=== PATIENT | female | born 1990 ===

== ENCOUNTER 2022-03-22 07:19 | Day surgery (SDC) | payer OTHER ==
[~2022-03-22] VITALS: Ht 162.6 cm; Wt 65.8 kg
== END 2022-03-22 20:25 | disposition home or self-care (01) ==
LOC: CIR.AMB 07:19
PROVIDERS: ATTEND Student in an Organized Health Care Education/Training Program
DX: O02.1 Missed abortion (principal); O72.2 Delayed and secondary postpartum hemorrhage; Z88.2 Allergy status to sulfonamides; Z20.822 Contact with and (suspected) exposure to COVID-19

== ENCOUNTER 2024-09-08 19:24 | Emergency (ER) | payer OTHER ==
[~2024-09-08] VITALS: Ht 162.6 cm; Wt 63.5 kg
== END 2024-09-08 19:30 | disposition left against medical advice (07) ==
LOC: ER 19:24
DX: Z53.21 Procedure and treatment not carried out due to patient leaving prior to being seen by health care provider (principal)